=== PATIENT | male | born 1970 | race Caucasian/White ===

== ENCOUNTER 2019-01-19 09:15 | Observation (INO) ==
--- NOTE | 2019-01-19 09:47 | PDOC ---
Back Pain / Injury HPI - General Chief Complaint: Neck / Back Complaint Stated Complaint: LEFT BACK PAIN Date Seen by Provider: 01/19/19 Time Seen by Provider: 09:40 Source: Patient Exam Limitations: POSITIVE: No limitations Nurse's Notes Reviewed & Considered: Yes - History of Present Illness Initial Comments: This is a well-developed, well-nourished, 48-year-old male, who presents with lower back pain. Patient with lower back pain that began yesterday and was acutely worse this morning with inability to get out of bed. His pain is all at the L4-5 level without radiation down his legs. He does have increased muscle spasms present in the lumbar spine. He denies any loss of continence of urine or stool, no fever chills or sweats, no headache, no shortness of breath or chest pain, no nausea vomiting or diarrhea, no hematuria or dysuria. Body Location Affected: REPORTS: Back Timing: REPORTS: Abrupt Duration: <24 hours Severity: Severe Quality: REPORTS: "Pain" Context: REPORTS: None Location at Time of Onset: REPORTS: Home Modifying Factors: improves with: Movement (Course in cyst pain), Remaining Still (Improves his pain) Associated Symptoms: REPORTS: Back pain Similar Symptoms Previously: Yes Recent Care Received: REPORTS: Denies Any Prior Injuries Related to Current Complaint?: No - Patient Home Medications Home Medications: Home Medications albuterol sulfate HFA 90 mcg/actuation aerosol inhaler 2 puff INH Q4-6H PRN #1 inh 08/01/18 Acetaminophen [Tylenol] 500 mg PO PRN 01/19/19 Ibuprofen 200 mg PO PRN 01/19/19 - Patient Allergies Allergies/Adverse Reactions: Allergies Allergy/AdvReac Type Severity Reaction Status Date / Time No Known Allergies Allergy Verified 01/19/19 09:16 Past Medical History - heen HEENT History: Denies History Cardiovascular History: Arrhythmia Additional Cardiovasular History: 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 Respiratory History: Asthma Gastrointestinal History: GERD Genitourinary History: Denies History Endocrine History: Denies History Musculoskeletal History: Denies History Neurological History: Denies History Blood Disorders: Denies History Additional Blood Disorders History: HX OF MALARIA AND BILHARDZIA Psychiatric History: Denies History Cancer History: Denies History In Past Year Been Physically Harmed or Verbally Threatened: No History of MDRO: No Tobacco Use: Current Every Day Smoker Alcohol Use: Occasionally Type of alcohol normally used: Beer In the Past 12 Months, Have Used or Abuse Any Substance: None Previous Surgical History: Yes Type / Date of Surgery: APPY, TONSILS Significant Family History: No pertinent family hx ROS - Limitations ROS Limitations: No Limitations Constitution: REPORTS: Denies Symptoms Cardiovascular: REPORTS: Denies Cardiac Symptoms Respiratory: REPORTS: Denies Resp Symptoms Neurological: REPORTS: Denies Neuro Symptoms Gastrointestinal: REPORTS: Denies GI Symptoms Endocrine: REPORTS: Denies Symptoms Musculoskeletal: REPORTS: Back Pain Genitourinary: REPORTS: Denies Symptoms Eyes: REPORTS: Denies Symptoms ENT: REPORTS: Denies Symptoms Skin: REPORTS: Denies Skin Symptoms Lympathic: REPORTS: Denies Lympathic Symptoms Immunologic: POSITIVE: Denies Symptoms Psychiatric: POSITIVE: Denies Psych Symptoms Back Physical Assessment - General Appearance General Appearance: REPORTS: Alert, Cooperative, No Evidence of Trauma, Moderate Distress - HEENT HEENT: POSITIVE: Head Inspection Nml, Eyes Inspection Nml, Ears Inspection Nml, Nose Inspection Nml, Oral/Dental Inspect. Nml, Pharynx Inspect. Nml, PERRL, EOMI - Pupil Size Pupil Size: 4 mm: Bilateral - Neck Neck: POSITIVE: Non Tender, Painless ROM, Trachea Midline, Nexus Criteria Negative - Respiratory / CVS Respiratory / CVS: POSITIVE: Chest Non Tender, No Respiratory Distress - Abdomen Abdomen: Soft: (All Quadrants), Denies Tenderness: (All Quadrants), No Splenomegaly: (All Quadrants), No Hepatomegaly: (All Quadrants), No Guarding: (All Quadrants), No Rebound: (All Quadrants), No Palpable Pulse: (All Quadrants), No Palpabale Mass: (All Quadrants), No Distention: (All Quadrants), No Rigidity: (All Quadrants) - Back Back: REPORTS: No CVA Tenderness, Muscle Spasm (Lumbar spine at the level of L5- S1), Limited ROM - Skin Skin: REPORTS: Intact, Normal For Race, Warm, Dry, No Rash - Extremities Extremity Assessment: Non-Tender: (ALL), Normal ROM: (ALL), No Edema: (ALL), Normal Inspection: (ALL), No Swelling: (ALL) Musculoskeletal: REPORTS: Back Pain - Neurological / Psychological Neuro / Psych: POSITIVE: Oriented X3, cat driver Normal As Tested, Motor Normal, Sensation Normal, Mood Appropriate, Affect Appropriate, Reflexes Normal Reflexes: Patellar (R): 2+, Patellar (L): 2+ Back Progress - Results Reviewed by me Xrays/CTs/US Reviewed: Yes Discussed with Radiologist: Yes Lab Results Reviewed by Me: Yes CBC and BMP: 01/19/19 12:05 01/19/19 12:05 Lab Results:: Laboratory Results 01/19/19 01/19/19 01/19/19 12:05 12:05 13:25 WBC 8.56 RBC 4.74 Hgb 15.6 Hct 43.3 MCV 91.4 H MCH 32.9 H MCHC 36.0 RDW Std Deviation 40.2 RDW Coeff of Sunny 12.3 Plt Count 264 MPV 8.1 Immature Gran % (Auto) 0.2 Neut % (Auto) 88.9 H Lymph % (Auto) 7.6 L Vilas % (Auto) 2.6 L Eos % (Auto) 0.6 Baso % (Auto) 0.1 Immature Gran # (Auto) 0.02 Neut # (Auto) 7.61 Lymph # (Auto) 0.65 Vilas # (Auto) 0.22 L Eos # (Auto) 0.05 Baso # (Auto) 0.01 WBC Morphology Comment Normal morphology Plt Morphology Comment Normal morphology RBC Morph Comment Normal morphology ESR 2 Sodium 131 L Potassium 4.3 Chloride 94 L Carbon Dioxide 27 Anion Gap 10 BUN 9 Creatinine 0.8 Estimated GFR > 60 BUN/Creatinine Ratio 11.25 Glucose 132 H Calculated Osmolality 272.0 Calcium 9.3 Magnesium 2.1 Total Bilirubin 0.8 AST 35 ALT 33 Alkaline Phosphatase 80 CK-MB (CK-2) Troponin I Handheld 0.000 C-Reactive Protein < 0.5 Total Protein 7.6 Albumin 4.4 Globulin 3.3 Albumin/Globulin Ratio 1.30 01/19/19 13:25 WBC RBC Hgb Hct MCV MCH MCHC RDW Std Deviation RDW Coeff of Sunny Plt Count MPV Immature Gran % (Auto) Neut % (Auto) Lymph % (Auto) Vilas % (Auto) Eos % (Auto) Baso % (Auto) Immature Gran # (Auto) Neut # (Auto) Lymph # (Auto) Vilas # (Auto) Eos # (Auto) Baso # (Auto) WBC Morphology Comment Plt Morphology Comment RBC Morph Comment ESR Sodium Potassium Chloride Carbon Dioxide Anion Gap BUN Creatinine Estimated GFR BUN/Creatinine Ratio Glucose Calculated Osmolality Calcium Magnesium Total Bilirubin AST ALT Alkaline Phosphatase CK-MB (CK-2) 1.13 Troponin I Handheld C-Reactive Protein Total Protein Albumin Globulin Albumin/Globulin Ratio EKG Interpreted/Reviewed By Me:: Yes (sinus rhythm with sinus arrhythmia, 60 bpm, no ST changes.) EKG Interpretation:: POSITIVE: Normal Rate, Normal ST/T - Patient's Progress Pain Medication Addressed: POSITIVE: Yes Re-Examine Time: 13:30 Status: POSITIVE: Improved MDM / ED Course: Patient was evaluated, an IV started, blood drawn and sent to the lab for studies, CT scan of his lumbar spine and EKG were obtained. Findings: CT scan of his lumbar spine shows spinal canal stenosis at L3 and L4. EKG shows sinus rhythm with a sinus arrhythmia, 60 bpm, no ST changes noted, per my interpretation. CBC shows white count hemoglobin and hematocrit and platelets are normal, neutrophils are 88.9%, lymphocytes are 7.6%, monocytes are 2.6%. ESR is 2 and CRP is less than 0.5. CMP shows abnormalities with a sodium of 131, chloride of 94, glucose 132, the remainder the panel is normal. Magnesium is 2.1. Troponin is Assessment: #1 back pain. Number to muscle spasm. #3 near-syncopal episode. Plan: Here in the emergency room patient had stood up and had a near syncopal episode with blood pressures dipping below 100 systolic and he became very lightheaded and was directed into a wheelchair. He subsequently had his blood pressure checked and was found to be 109 systolic and EKG was then ordered along with troponin. I've contacted the on-call hospitalist, Dr. Caba, who is graciously admitted the patient - Consult Consult (If Yes, Name of Consulting MD & Time Called): Yes (Dr. Caba) Consulting MD will see pt:: POSITIVE: [facility] Admit Counseled: POSITIVE: Patient, Family, RE: Lab Results, RE: Radiology Results, RE: DX Patient Care Time - Estimated PCT Patient Care Time (In Minutes): 60 Vital Signs - Recent Vital Signs Vital Signs: Vital Signs (Last 8 hours) Temp Pulse Resp BP Pulse Ox 01/19/19 13:52 96.5 F L 71 16 110/73 97 01/19/19 09:21 96.5 F L 82 18 119/81 94 - VS Reviewed Vital Signs Reviewed: Yes Discharge Clinical Impression: Acute low back pain, Muscle spasm, Near syncope Discharge Disposition: Admit to Observation Condition: Stable Patient Problem(s) Reviewed: Yes Date Decision to Admit to Inpatient: 01/19/19 Time Decision to Admit to Inpatient: 13:22
[2019-01-19] MEDS ORDERED: LORazepam 1 MG TABLET PO ONE (09:48)
[2019-01-19] MEDS ORDERED: Dexamethasone Oral Soln 10 MG/5 ML SOLN PO ONE (09:48)
[2019-01-19] MEDS ORDERED: ORPHENADRINE 100 MG PO ONE (09:48)
[2019-01-19] MEDS ORDERED: DEXAMETHASONE PF 10 MG/1 ML VIAL IVP ONE (09:53)
[2019-01-19] MEDS ORDERED: MORPHINE SULFATE 4 MG/1 ML IVP ONE (11:28)
[2019-01-19 12:11] LABS: BASOPHILS # (AUTO) 0.01 10*3/UL; BASOPHILS % (AUTO) 0.1 % (0-1); EOSINOPHILS # (AUTO) 0.05 10*3/UL; EOSINOPHILS % (AUTO) 0.6 % (0-8); Hematocrit [HCT] 43.3 % (42.0-52.0); Hemoglobin [HGB] 15.6 g/dL (14.0-18.0); LYMPHOCYTES # (AUTO) 0.65 10*3/uL; MEAN CORPUSCULAR VOLUME 91.4 FL (80-90); MEAN PLATELET VOLUME 8.1 FL (7.4-12.2); MONOCYTES # (AUTO) 0.22 10*3/UL (0.3-0.8); MONOCYTES % (AUTO) 2.6 % (5-15); NEUTROPHILS # (AUTO) 7.61 10*3/UL; NEUTROPHILS % (AUTO) 88.9 % (50-80); RED BLOOD COUNT 4.74 10^6/uL (4.70-6.10)
[2019-01-19 12:13] LABS: PLATELET MORPHOLOGY COMMENT NORMAL MORPHOLOGY (NORM); RBC MORPHOLOGY COMMENT NORMAL MORPHOLOGY (NORM); WBC MORPHOLOGY COMMENT NORMAL MORPHOLOGY (NORM)
[2019-01-19 12:25] LABS: BLOOD UREA NITROGEN 9 mg/dL (7-22); BUN/CREATININE RATIO 11.25 (6-20); SERUM ALBUMIN 4.4 g/dL (3.5-4.8)
[2019-01-19 12:48] LABS: Erythrocyte Sediment Rate 2 MM/HR (0-15)
--- NOTE | 2019-01-19 13:07 | DI ---
CT LUMBAR SPINE SCAN WITHOUT CONTRAST, 01/19/2019 12:00 PM : Clinical History: Low back pain. Previous Exam: None at this facility. Technique: Scans are obtained from the T10-11 disc space to S5. Sagittal and coronal reformatted imag es are generated. Soft Tissues: Normal. Vertebral Bodies: There is anterior wedging of T10-L2 and these changes appear to be developmental. S chmorl's nodes are present from T10-11 through L1-2 disc spaces. There are no fractures. Disc Space Height: Moderate disc space narrowing is present at T10-11 through L5-S1. Alignment: Posterior alignment and posterior elements are normal. Apophyseal joints: Moderate arthritic changes are present in all of the lumbar apophyseal joints. Pedicles: Pedicles are normal. SI Joints: The sacrum and SI joints are normal. Disc Levels: T11-12: Minimally bulging but not herniated disc without canal or neural foraminal stenosis. T12-L1: Minimally bulging but not herniated disc without canal or neural foraminal stenosis. L1-2: Minimally bulging but not herniated disc without canal or neural foraminal stenosis. L2-3: Circumferentially bulging disc with hypertrophic changes of the apophyseal joints and ligamentum flavum producing a cross-sectional area of the canal at the lowest limits of normal. No n eural foraminal stenosis. L3-4: Circumferentially bulging disc with hypertrophic changes of the apophyseal joints and ligamentum flavum with spinal canal stenosis but no neural foraminal stenosis. L4-5: Bulging but not herniated disc without canal or neural foraminal stenosis. L5-S1: Bulging but not herniated disc without canal or neural foraminal stenosis. READIN. Spinal canal stenosis at L3-4 with a bulging disc and hypertrophic changes of the apophyseal join ts. No neural foraminal stenosis. 2. Bulging disc with hypertrophic changes of the apophyseal joints and ligamentum flavum with a cros s-sectional area of the canal at the lowest limits of normal. No neural foraminal stenosis. 3. Bulging discs without canal or neural foraminal stenosis at T11-12 through L1-2 and at L4-5 and L 5-S1.
--- NOTE | 2019-01-19 13:19 | EKG ---
[address] [place] [address] Test Date: 2019-01-19 Pat Name: YOLY CABAN Department: ER Room: 321 Gender: Male Pack Out Operator: MAGUE : 1970 Requested By: Chet Shine Order Number: [id number] Reading MD: Jesus Alberto Pennington MD Measurements Intervals Viola Rate: 60 P: 69 UT: 121 QRS: 91 QRSD: 106 T: 52 QT: 435 QTc: 437 Interpretive Statements SINUS RHYTHM WITH SINUS ARRHYTHMIA BORDERLINE RIGHT AXIS DEVIATION [QRS AXIS > 90] Compared to ECG 07/02/2018 16:29:04 Intraventricular conduction delay no longer present Electronically Signed On 01-20-2019 8:55:36 MDT by Jesus Alberto Pennington MD [id number]
[2019-01-19] MEDS ORDERED: tiZANidine Tab 4 MG TAB PO PRN (14:09)
[2019-01-19] MEDS ORDERED: DOCUSATE 100 MG CAPSULE PO PRN (14:25)
[2019-01-19] MEDS ORDERED: LIDOCAINE W/ SODIUM BICARB 0.5 ML SYR SUBD PRN (14:25)
[2019-01-19] MEDS ORDERED: ONDANSETRON 4 MG/2 ML VIAL IVP PRN (14:25)
[2019-01-19] MEDS ORDERED: ACETAMINOPHEN 325 MG TABLET PO PRN (14:25)
[2019-01-19] MEDS ORDERED: KETOROLAC 15 MG/1 ML VIAL IVP PRN (14:25)
[2019-01-19] MEDS ORDERED: CALCIUM CARBONATE 500 MG (TUMS) CHEWABLE TABLET PO PRN (14:25)
[2019-01-19] MEDS: HEPARIN 5000 UNIT/1 ML SUBCUT SCH ×2 (15:28→22:36)
--- NOTE | 2019-01-19 15:57 | PDOC ---
HPI - History of Present Illness History of Present Illness: This very nice 48-year-old gentleman presented to the ER with back pain. This began yesterday and the not worse this morning and was unable to get out of bed. He has a lot of muscle spasm in the lumbar spine pain does not radiate he has no loss of urine or stool. He says he seen the specialist in the past for the last time it happened was 1 year ago and that outpatient physical therapy and got better. Denies chest pain nausea or vomiting Past Medical History Tobacco Use: Current Every Day Smoker In the Past 12 Months, Have Used or Abuse Any of the Following Substance: None Medication / Allergies Home Medications: Home Medications Medication Instructions Recorded Confirmed albuterol sulfate HFA 90 2 puff INH Q4-6H PRN #1 inh 08/01/18 01/19/19 mcg/actuation aerosol inhaler Acetaminophen [Tylenol] 500 mg PO PRN 01/19/19 01/19/19 Ibuprofen 200 mg PO PRN 01/19/19 01/19/19 Allergies/Adverse Reactions: Allergies Allergy/AdvReac Type Severity Reaction Status Date / Time No Known Allergies Allergy Verified 01/19/19 09:16 Exam - Vitals Vital Signs: Vital Signs Temperature 97.8 F Temperature Source Oral Pulse Rate [Pulse Oximeter] 60 Pulse Rate 71 Respiratory Rate 16 Blood Pressure [Left Arm] 119/62 Blood Pressure 110/73 Pulse Ox 97 Oxygen Delivery Method Room Air Height 6 ft 1 in Weight 185 lb - General General Appearance: No Acute Distress, Cooperative - Respiratory Respiratory Exam: POSITIVE: Clear to Auscultation - Bilaterally, Breathing Non Labored, Normal To Percussion, Normal to Percussion and Palpation - Cardiovascular Cardiovascular Exam: POSITIVE: RRR, No Murmur, No Clicks, No Gallops, No Rubs, PMI Non-Displaced - GI/Abdominal GI/Abdominal Exam: POSITIVE: Normal Bowel Sounds, Non Tender, Non Distended, S oft, No Masses, No Hepatomegaly, No Splenomegaly, No Organomegaly - Extremities Extremities Exam: POSITIVE: No Clubbing Present, No Edema Present - Back Back Exam: POSITIVE: Muscle Spasm Results - Labs CBC and BMP: 01/19/19 12:05 01/19/19 12:05 Assessment and Plan - Patient Problems (1) Acute low back pain Current Visit: Yes Status: Acute Comment: Continue IV Toradol/IV dye lauded/the received Decadron and muscle r elaxer consult PTOT. We will order an MRI for the morning. They have their own specialist which they saw her last year Dr. Mendoza's partner to have the MRI reviewed and to follow-up with Code(s): M54.5 - Low back pain (2) Muscle spasm Current Visit: Yes Status: Acute Code(s): M62.838 - Other muscle spasm
[2019-01-19] MEDS: HYDROmorphone 2 MG/1 ML IVP PRN ×2 (16:09→22:28)
[2019-01-19] MEDS: tiZANidine Tab 4 MG TAB PO PRN (19:47)
[2019-01-19 23:16] VITALS: RESP 16
[2019-01-19] MEDS: ALBUTEROL SULFATE 8.5 GM HFA INHALER INH PRN (23:35)
[2019-01-20] MEDS: tiZANidine Tab 4 MG TAB PO PRN (06:50)
[2019-01-20] MEDS: ALBUTEROL SULFATE 8.5 GM HFA INHALER INH PRN (06:54)
[2019-01-20 07:58] VITALS: BP 101/65; TEMP 97.7; O2SAT 96
[2019-01-20] MEDS: HEPARIN 5000 UNIT/1 ML SUBCUT SCH (08:30)
[2019-01-20] MEDS ORDERED: Dexamethasone Tab 4 MG TABLET PO SCH (09:00)
--- NOTE | 2019-01-20 11:04 | DCSUMMARY ---
Hospitalization Summary Hospital Course: Final Discharge Diagnosis: Current Visit Problems Problem Status Onset Code Acute low back pain Acute M54.5 Muscle spasm Acute M62.838 Diagnostic Data, Laboratory Data, and Procedures of Signifigance: MRI of lower back and CT scan of lower back CBC and BMP 01/19/19 12:05 01/19/19 12:05 History and Physical pertinent to Admission: Course of Hospitalization: This very nice 48-year-old gentleman who came in with acute low back pain and spasms he was treated with the muscle relaxers and steroids and physical therapy this pain is totally resolved today he went and did physical therapy without any issues his CAT scan results were given to him on a disc as well as his MRIs he will follow-up with the his back surgeon that he has used in the past for follow-up. He will be given the prescription for Zanaflex and Medrol Dosepak. Also was given outpatient prescription for PT and OT. Patient had no loss of urine or stool sensation intact lower extremities as well as motor strength On the date of discharge, the patient was examined: Gen.: No acute distress, alert, nontoxic Heart: Regular rate and rhythm, no murmurs, clicks, gallops, or rubs Lungs: Clear to auscultation bilaterally, breathing is nonlabored Abdomen/GI: Normal tones on auscultation, soft, nontender, nondistended Musculoskeletal/extremities: No clubbing, cyanosis, or edema Vitals reviewed and are listed below Assessment and Plan: 1. As per discharge assessments above 2. Disposition: Home 3. Condition on discharge, stable and improved. 4. Diet: regular diet 5. Activities: resume normal activities 6. Follow-Up: 1. PCP Dr. Yanez 2. 7. Medications at the Time of Discharge: Home Medications Medication Instructions Recorded Confirmed albuterol sulfate HFA 90 2 puff INH Q4-6H PRN #1 inh 08/01/18 01/19/19 mcg/actuation aerosol inhaler Acetaminophen [Tylenol] 500 mg PO PRN 01/19/19 01/19/19 Ibuprofen 200 mg PO PRN 01/19/19 01/19/19 methylPREDNISolone Dose Pack 1 ea PO ASDIR #1 pkg 01/20/19 [Medrol Dose Pack] tiZANidine Tab [Zanaflex Tab] 4 mg PO Q6H PRN #10 tab 01/20/19 8. Time, care, counseling and coordination of care for this discharge is greater than 30 minutes. Exam - Vitals Vital Signs: Vital Signs Temperature 97.7 F Temperature Source Temporal Artery Scan Pulse Rate [Pulse Oximeter] 76 Pulse Rate 71 Respiratory Rate 16 Blood Pressure [Left Arm] 101/65 Blood Pressure 110/73 Pulse Ox 96 Oxygen Delivery Method Room Air Height 6 ft 1 in Weight 185 lb Patient Problems - Patient Problem List (1) Acute low back pain Current Visit: Yes Status: Acute Code(s): M54.5 - Low back pain Category: Medical (2) Muscle spasm Current Visit: Yes Status: Acute Code(s): M62.838 - Other muscle spasm Category: Medical
--- NOTE | 2019-01-20 11:54 | DI ---
MRI LUMBAR SPINE SCAN WITHOUT IV CONTRAST, 01/20/2019 8:50 AM: Clinical History: Lumbar pain. Previous Exam: None. Technique: Sagittal and axial T2 weighted; sagittal T1 weighted and T2 STIR; and axial PD. Lower Thoracic Cord: Lower thoracic cord is normal and terminates at T12. Conus Medullaris: Normal . Vertebral Bodies: The lumbar vertebral bodies are of normal height and size. Disc Space Height: Mild to moderate disc space narrowing at every lumbar level with desiccation cordero e. Disc Levels: T11-12: Bulging but not herniated disc without canal or neural foraminal stenosis. T12-L1: Bulging but not herniated disc without canal or neural foraminal stenosis. L1-2: Bulging but not herniated disc without canal or neural foraminal stenosis. There is a midline disc annulus tear. L2-3: Left anterolateral disc herniation with a disc annulus tear producing spinal canal marck nosis along with the hypertrophic changes of the apophyseal joints and ligamentum flavum. There is no neural foraminal stenosis. L3-4: Bulging but not herniated disc with hypertrophic changes of the apophyseal joints and ligamentum flavum producing spinal canal stenosis without neural foraminal stenosis. L4-5: Bulging but not herniated disc without canal or neural foraminal stenosis. There is a far lateral left disc annulus tear. L5-S1: Midline focal bulging but not herniated disc without canal or neural foraminal stenosis. There is a midline disc annulus tear. Readin. Left L2-3 anterolateral disc herniation. Together with hypertrophic changes of the apophyseal tori nts and ligamentum flavum, there is spinal canal stenosis but without neural foraminal stenosis. Ther e is a left lateral disc annulus tear. 2. Spinal canal stenosis at L3-4 secondary to hypertrophic changes of the apophyseal joints and liga mentum flavum and a bulging disc. There is no neural foraminal stenosis. 3. Bulging discs without canal or neural foraminal stenosis at L4-5 and L5-S1. L4-5 has a far latera l left disc annulus tear, and there is a midline disc annulus tear at L5-S1.
--- NOTE | 2019-01-22 12:18 | PTI REPORT ---
Thank you for the referral of Abiel Knutson. He was seen on 01/20/19 for an inpatient evaluation secondary to back pain. SUBJECTIVE: The patient is a 48-year-old male. 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 He was alternating between heat and ice and finally on Saturday his pain had gotten so bad, he was unable to get out of bed and asked his to take him to the emergency room where he was admitted for pain management. He states as of today his back is feeling much better. X-rays showed old fractures but nothing acute. The patient states he had just participated in an MRI but the results are unknown at this time. He is hoping to be discharged today and participate with outpatient physical therapy later on this week. He states he has had problems with back pain in the past and has participated with physical therapy with great results, specifically with the dry needling and pool therapy. PAST MEDICAL HISTORY: Past medical history can be found in the patient's medical record. OBJECTIVE FINDINGS: Pain: Currently the patient reports a pain level of 3/10 on the verbal analog scale (0=no pain, 10=worst pain). Bed mobility/Transfers: The patient is able to perform bed mobility and transfers independently with a guarded posture. Activities of daily living: The patient demonstrated the ability to perform lower extremity dressing independently. Ambulation: The patient demonstrated the ability to ambulate well over 500 feet continuously as well as ascending/descending stairs. Strength/Range of motion: Specific strength and range of motion were not tested due to the patient wanting to avoid pain recreation. ASSESSMENT: Problem List: Pain with functional mobility Physical Therapy Goals: To be met by discharge from inpatient: Patient will be independent with all ADLs, transfers, and mobility without difficulty. TREATMENT PLAN: Patient will be seen PRN while in the hospital. INITIAL TREATMENT: Treatment today consisted of the initial evaluation followed by having the patient perform bed mobility independently. We were on the way down to physical therapy when nursing stated he was requiring an MRI, so we walked down a flight of stairs to MRI where he participated with imaging. He then participated with physical therapy, ambulating downstairs without the use of an assistive device and stand by assistance. He received an application of moist heat and e-stim x20 minutes including set up to the back followed by manual therapy in the form of dry needling to the lumbar spine paraspinals. He then received an ultrasound combo to his back. No manual therapy was performed this visit. The therapist did discuss participation with aquatic therapy with the patient if he was still here in the afternoon. He then ambulated all the way back upstairs via the stairwell with the therapist with no difficulty. The therapist did speak with Dr. Lopez and the patient's nurse upon completion of today's evaluation and treatment, stating that he could be cleared to go home but did request a written order for outpatient physical therapy. MONSERRAT
== END 2019-01-20 11:53 | disposition home or self-care (01) ==
LOC: ER 09:15 → MED/SURG 09:15
PROVIDERS: ADMIT Internal Medicine; ATTEND Internal Medicine